=== PATIENT | female | born 1995 | race African-American/Black ===

== ENCOUNTER 2018-02-06 02:45 | Emergency (ER) | payer SELFPAY ==
[~2018-02-06] VITALS: Ht 165.1 cm; Wt 69.3 kg
[2018-02-06 03:58] LABS: ALBUMIN 4.3 g/dL (3.2-4.8); CHLORIDE 102 mEq/L (99-109); HEMATOCRIT 34.4 % (36.0-46.0); MCH 26.3 PG (29.0-34.0); MCHC 34.9 G/DL (30.0-36.0); MCV 75.4 FL (83-99); POTASSIUM 5.2 mEq/L (3.7-5.4); RBC DIS.WIDTH-CV 16.6 % (11.8-14.6); RBC DIS.WIDTH-SD 45.1 % (39-53); RED BLOOD COUNT 4.56 M/uL (3.80-5.20); SODIUM 134 mEq/L (136-147); WHITE BLOOD COUNT 9.9 K/uL (4.1-10.2)
[2018-02-06 04:00] LABS: GLUCOSE 87 mg/dL (70-99); TOTAL PROTEIN 8.1 g/dL (6.4-8.3)
[2018-02-06 04:02] LABS: TOTAL BILIRUBIN 0.3 mg/dL (0.0-1.0)
[2018-02-06 04:04] LABS: ALKALINE PHOSPHATASE 69 IU/L (3-129); GFR ESTIMATE (CALCULATED) > 59 mL/min/
[2018-02-06 04:05] LABS: AST (GOT) 47 IU/L (2-34); UREA NITROGEN (BUN) 9 mg/dL (9-23)
[2018-02-06 04:07] LABS: ALT (GPT) 23 IU/L (3-49)
[2018-02-06 04:14] LABS: QUANTITATIVE HCG < 4.0 MIU/ML
[2018-02-06 04:59] LABS: LIPASE 16 U/L (1.0-51.0)
[2018-02-06 05:09] LABS: APPEARANCE CLEAR ((CLEAR)); BILIRUBIN NEGATIVE; BLOOD NEGATIVE; COLOR YELLOW ((YELLOW)); GLUCOSE (STRIP) NEGATIVE; KETONES NEGATIVE; LEUKOCYTES NEGATIVE; NITRITE NEGATIVE; PROTEIN (STRIP) NEGATIVE; SPECIFIC GRAVITY 1.013 (1.000-1.030); UCUL ADDED? NO; UROBILINOGEN 0.2 MG/DL (0.2-1.0)
[2018-02-06] MEDS ORDERED: ZOFRAN4 MG PO (05:21)
[2018-02-06 06:17] VITALS: BP 109/70
[2018-02-06 06:53] LABS: PLATELET CLUMPS PRESENT - PLATELET COUNT APPEARS ADEQUATE; PLATELET COUNT UNABLE TO REPORT K/uL (156-360)
== END 2018-02-06 06:17 | disposition home or self-care (01) ==
LOC: EME 02:45
PROVIDERS: Emergency Medicine
DX: R11.0 Nausea (principal); R51 Headache; E86.0 Dehydration
CPT/HCPCS: 80053; 81003; 83690; 84702; 85027; 99281; 99285; J7030